=== PATIENT | male | born 1975 | race Two or more races ===

== ENCOUNTER 2022-06-02 09:21 | Emergency (ER) | payer SELFPAY ==
[~2022-06-02] VITALS: Ht 193 cm; Wt 77.9 kg
[2022-06-02 10:20] VITALS: BP 137/96
[2022-06-02] MEDS ORDERED: TETANUS-DIPTH-ACEL PERTUSSIS 0.5ML SYR Tdap IM ONE (10:30)
[2022-06-02] MEDS ORDERED: CEPH-510 PO (11:09)
[2022-06-02] MEDS ORDERED: ACET-1158 PO (11:09)
== END 2022-06-02 13:39 | disposition home or self-care (01) ==
LOC: ER 09:21
DX: S61.210A Laceration without foreign body of right index finger without damage to nail, initial encounter (principal); Z88.1 Allergy status to other antibiotic agents; W22.8XXA Striking against or struck by other objects, initial encounter; Y93.89 Activity, other specified; Y92.89 Other specified places as the place of occurrence of the external cause; Y99.8 Other external cause status
CPT/HCPCS: 12001; 90471; 90715